=== PATIENT | male | born 1960 | race Caucasian/White ===

== ENCOUNTER 2017-12-28 17:47 | Emergency (ER) | payer MEDICAID, OTHER ==
--- NOTE | 2017-12-28 18:24 | ED PDOC ---
HPI: Psych/Substance Abuse Time Seen by Provider: 12/28/17 18:00 Chief Complaint (Nursing): Substance Abuse Chief Complaint (Provider): Substance Abuse ED Caveat: Intoxicated History Per: Patient, EMS History/Exam Limitations: intoxication Onset/Duration Of Symptoms: Hrs Modifying Factor(s): Narcotics Additional Complaint(s): Simeon Gonzalez is a 57 year old male with a past medical history of hepatitis was brought to the ED by EMS for evaluation of bizarre behavior. Patient admits to heroin abuse but is awake, drowsy, oriented x3 and answering questions. He is responsive to verbal stimuli and offers no other medical complaints at this time. PMD: none provided Past Medical History Reviewed: Historical Data, Nursing Documentation, Vital Signs, Unable To Obtain (minimal information gathered) Vital Signs: Last Vital Signs Temp 100.1 F H 12/28/17 17:51 Pulse 100 H 12/28/17 17:51 Resp 20 12/28/17 17:51 BP 160/117 H 12/28/17 17:51 Pulse Ox 99 12/28/17 17:51 - Medical History PMH: Hepatitis (C) Denies: HIV, Chronic Kidney Disease - Family History Family History: States: Unknown Family Hx - Home Medications Home Medications: Ambulatory Orders Medication Instructions Recorded Cephalexin [cephalexin] 500 mg PO TID #30 cap 08/15/15 - Allergies Allergies/Adverse Reactions: Allergies Allergy/AdvReac Type Severity Reaction Status Date / Time No Known Allergies Allergy Verified 12/28/17 17:51 Review of Systems ROS Statement: Except As Marked, All Systems Reviewed And Found Negative ( history limited due to patient's intoxication) Constitutional: Positive for: Other (Patient denies all medical complaints) Physical Exam - Reviewed Nursing Documentation Reviewed: Yes Vital Signs Reviewed: Yes - Physical Exam Appears: Positive for: Non-toxic, No Acute Distress Head Exam: Positive for: ATRAUMATIC, NORMAL INSPECTION, NORMOCEPHALIC Skin: Positive for: Normal Color, Warm, DRY Eye Exam: Negative for: Normal appearance ((+) pupils constricted) ENT: Positive for: Normal ENT Inspection Neck: Positive for: Normal, Painless ROM Cardiovascular/Chest: Positive for: Regular Rate, Rhythm. Negative for: Murmur Respiratory: Positive for: Normal Breath Sounds. Negative for: Respiratory Distress Gastrointestinal/Abdominal: Positive for: Normal Exam, Soft. Negative for: Tenderness Back: Positive for: Normal Inspection. Negative for: L CVA Tenderness, R CVA Tenderness, Vertebral Tenderness Extremity: Positive for: Normal ROM (moving all extremities) Neurologic/Psych: Positive for: Alert, Oriented (x3). Negative for: Motor/ Sensory Deficits - Laboratory Results Result Diagrams: 12/28/17 18:26 12/28/17 18:26 - ECG O2 Sat by Pulse Oximetry: 99 (RA) Pulse Ox Interpretation: Normal Medical Decision Making Medical Decision Making: Time: 18:06 Impression: Drug Abuse Plan: --Alcohol Serum --CMP --Drug Screen --ED Urine Dipstick --CBC --Glucose, POC --Urinalysis Patient's repeat temperature was 99.2. 19:42 Patient is alert and oriented x. Patient's sister is a bedside and he will stay with family tonight. Scribe Attestation: Documented byAnna acting as a scribe for Nichole Baez MD. Provider Scribe Attestation: All medical record entries made by the Scribe were at my direction and personally dictated by me. I have reviewed the chart and agree that the record accurately reflects my personal performance of the history, physical exam, medical decision making, and the department course for this patient. I have also personally directed, reviewed, and agree with the discharge instructions and disposition. Disposition - Clinical Impression Clinical Impression: Heroin abuse - Disposition Referrals: [facility] [Outside] Disposition: Routine/Home Disposition Time: 19:37 Condition: IMPROVED Instructions: Drug Abuse and Drug Addiction (DC), Opioid Use Disorder Forms: [employer] (Serbian)
[2017-12-28 18:30] LABS: BASO % 0.7 % (0.0-2.0); EOS # 0.1 K/uL (0.0-0.7); EOS % 1.1 % (0.0-4.0); HEMOGLOBIN 14.6 g/dL (12.0-18.0); LYMPH % 33.6 % (20.0-40.0); MEAN CELL VOLUME 94.1 fl (80.0-94.0); MEAN CORPUSCULAR HEMOGLOBIN 31.9 pg (27.0-31.0); MEAN PLATELET VOLUME 6.7 fl (7.2-11.7); MONO # 0.6 K/uL (0.0-0.8); MONO % 9.8 % (0.0-10.0); NEUT # 3.3 K/uL (1.8-7.0); NEUT % 54.8 % (50.0-75.0); RBC 4.57 Mil/uL (4.40-5.90); RED CELL DISTRIBUTION WIDTH 13.2 % (11.5-14.5); WHITE BLOOD COUNT 6.1 K/uL (4.8-10.8)
[2017-12-28 18:39] LABS: ALB/GLOB RATIO 1.2 (1.0-2.1); ALBUMIN 4.4 g/dL (3.5-5.0); ALT/SGPT 186 U/L (21-72); AST/SGOT 135 U/L (17-59); BLOOD UREA NITROGEN 13 mg/dl (9-20); CALCIUM 8.8 mg/dL (8.4-10.2); GFR NON-AFRICAN AMERICAN 57
[2017-12-28 19:23] LABS: SQUAMOUS EPITHIAL 2 /hpf (0-5); URINE BILIRUBIN NEGATIVE (NEGATIVE); URINE BLOOD NEGATIVE (NEGATIVE); URINE CLARITY CLOUDY (Clear); URINE COLOR AMBER (YELLOW); URINE GLUCOSE (UA) NEG (Normal); URINE LEUKOCYTE ESTERASE NEG Leu/uL (Negative); URINE PROTEIN 30 mg/dL (NEGATIVE)
[2017-12-28 19:29] LABS: BARBITURATES, UR NEGATIVE (NEGATIVE); BENZODIAZEPINES, UR NEGATIVE (NEGATIVE); OPIATES, UR POSITIVE (NEGATIVE); PHENCYCLIDINE, UR NEGATIVE (NEGATIVE)
[2017-12-28 19:33] VITALS: RESP 18
[2017-12-28 19:53] VITALS: BP 132/87; PULSE 86; TEMP 98.3
[2017-12-28 20:48] VITALS: O2SAT 99
== END 2017-12-28 19:52 | disposition home or self-care (01) ==
LOC: H.ER 17:47
DX: F11.10 Opioid abuse, uncomplicated (principal); B19.20 Unspecified viral hepatitis C without hepatic coma